=== PATIENT | female | born 1990 | race Caucasian/White ===

== ENCOUNTER 2019-09-30 03:14 | Emergency (ER) | payer SELFPAY ==
[2019-09-30] MEDS ORDERED: NORMAL SALINE 1000 ML 1,000 ML IV ONE (03:44)
--- NOTE | 2019-09-30 03:45 | ER Document Report ---
ED General - General Chief Complaint: Nausea/Vomiting Stated Complaint: NAUSEA/VOMITING Time Seen by Provider: 09/30/19 03:26 Notes: 29-year-old female brought in by EMS for nausea and vomiting this evening outside of a business. Patient is responsive. Answers yes and no questions. Responds to verbal commands. When asked if she drank tonight she nods yes. When asked if she hit her head she nods her head no. If asked if she is in any pain she nods her head no. Moves her extremities on command. - Related Data Allergies/Adverse Reactions: No Known Allergies Allergy (Unverified 09/30/19 03:36) Past Medical History - Social History Smoking Status: Unknown if Ever Smoked Frequency of alcohol use: Occasional Drug Abuse: None Family History: Reviewed & Not Pertinent Patient has homicidal ideation: No Review of Systems - Review of Systems -: Yes ROS unobtainable due to patient's medical condition Physical Exam - Vital signs Vitals: Temp 97.5 F 09/30/19 03:15 Interpretation: Normal - Notes Notes: Adult General: GENERAL: Alert, responsive to yes and no questions. no acute distress, physical exam limited due to patients intoxication. Emesis noted on patients shirt HEAD: Normocephalic, atraumatic EYES: Pupils equal, round and reactive to light. Extraocular movements intact. ENT: Oral mucosa moist, tongue midline. Oropharynx unremarkable. Airway patent. Nares patent, sinuses nontender, ear canals unremarkable, TMs intact. NECK: Full range of motion. Supple. Trachea midline. No lymphadenopathy. LUNGS: Clear to auscultation bilaterally, no wheezes, rales, or rhonchi. No respiratory distress. Nontender chest wall. HEART: Regular rate and rhythm. No murmurs, rubs or gallops. ABDOMEN: Soft, nontender. Nondistended. (-) [place] sign. Bowel sounds present in all 4 quadrants. GENITOURINARY: Deferred EXTREMITIES: Moves all 4 extremities spontaneously. No edema, normal radial and dorsal pedis pulses bilaterally. No cyanosis. BACK: non tender, no step offs or crepitus. NEUROLOGICAL: Alert. Strength 5/ 5 in all extremities. PSYCH: Normal affect, normal mood. SKIN: Warm, dry, normal turgor. No rashes or lesions noted. Course - Re-evaluation Re-evalutation: 09/30/19 04:57 Patient's labs are unremarkable at this time. Patient reports that she drank a lot last night. She also has vomit on her right side on her shirt and her pants. Suspect nausea and vomiting related to alcohol intoxication. Patient has been reevaluated. Is resting peacefully in the bed. Still responsive to questions. We will continue to monitor patient and reassess. When she is able to remain awake will recommend patient go home. Labs are unremarkable. test is negative 09/30/19 07:08 09/30/19 07:39 Patient is now alert and oriented. States she does not remember the events of last night. Does remember drinking alcohol. Does not remember how much or where she was at. Patient does report that she is nauseated at this time. Denies any pain. No signs of trauma. Denies any headache, fevers, chills shortness of breath chest pain or any additional symptoms. Discussed with patient the events of the evening and that she was found by EMS on a bench outside of a business vomiting and they brought her in. I also discussed with her that she was able to respond to yes or no questions and she was able to tell me that she had consumed alcohol head trauma and was not in pain. Repeat physical was performed. Patient is alert and oriented x3. Head is atraumatic, normocephalic pupils are equal round reactive to light and extraocular movements intact. Oropharynx is unremarkable. Patient is neurovascularly intact in upper and lower extremities. 5 out of 5 strength in all extremities. Cervical, thoracic and lumbar spine has no midline tenderness and no paraspinal tenderness. Heart regular rate and rhythm with no murmurs rubs or gallops. Lungs are clear to auscultation bilaterally. Abdomen is soft, nontender with bowel sounds in all 4 quadrants. Skin shows no lacerations or lesions. As patient is alert and oriented at this time, denies pain with no signs of trauma I am okay discharging the patient. Discussed return precautions with the patient. Patient acknowledges and verbalizes understanding of instructions. All questions answered. - Vital Signs Vital signs: Temp Pulse Resp BP Pulse Ox 97.5 F 68 16 110/64 100 09/30/19 03:16 09/30/19 06:00 09/30/19 06:00 09/30/19 06:00 09/30/19 06:00 - Laboratory Result Diagrams: 09/30/19 03:50 09/30/19 03:50 Laboratory results interpreted by me: 09/30/19 03:50 Chloride 109 H Glucose 115 H Discharge - Discharge Clinical Impression: Alcohol intoxication Qualifiers: Complication of substance-induced condition: uncomplicated Qualified Code(s): F10.920 - Alcohol use, unspecified with intoxication, uncomplicated Nausea & vomiting Qualifiers: Vomiting type: unspecified Vomiting Intractability: unspecified Qualified Code(s): R11.2 - Nausea with vomiting, unspecified Condition: Stable Disposition: HOME, SELF-CARE Instructions: Acute Alcohol Intoxication ([facility]), Antinausea Medication ([facility]), Intravenous (IV) Fluids ([facility]), Nausea or Vomiting, Nonspecific ([facility]) Additional Instructions: Please follow-up with your primary care provider. You may return to the emergency department for any worsening symptoms or development of new symptoms. Prescriptions: Ondansetron [Zofran Odt 4 mg Tablet] 4 mg PO Q4HP PRN #10 tab.rapdis PRN Reason:
[2019-09-30 04:31] LABS: ALBUMIN 4.3 g/dL (3.5-5.0); ALKALINE PHOSPHATASE 44 U/L (38-126); ANION GAP 9 (5-19); ASPARTATE AMINO TRANSFERASE 21 U/L (14-36); BILIRUBIN,TOTAL 0.2 mg/dL (0.2-1.3); BLOOD UREA NITROGEN 8 mg/dL (7-20); CALCIUM 8.5 mg/dL (8.4-10.2); CARBON DIOXIDE 24 mmol/L (22-30); CHLORIDE 109 mmol/L (98-107); GLUCOSE 115 mg/dL (75-110); TOTAL PROTEIN 7.2 g/dL (6.3-8.2)
[2019-09-30 04:50] LABS: ABSOLUTE LYMPHOCYTES (AUTO) 1.3 10^3/uL (0.5-4.7); ABSOLUTE MONOCYTES (AUTO) 0.3 10^3/uL (0.1-1.4); ABSOLUTE NEUT (AUTO) 4.1 10^3/uL (1.7-8.2); BASOPHILS % (AUTO) 0.5 % (0-2); EOSINOPHILS % (AUTO) 0.2 % (0-6); HEMATOCRIT 36.7 % (36.0-47.0); HEMOGLOBIN 12.4 g/dL (12.0-15.5); LYMPHOCYTES % (AUTO) 22.5 % (13-45); MEAN CORPUSCULAR HEMOGLOBIN 31.6 pg (27.0-33.4); MEAN CORPUSCULAR HGB CONC 33.8 g/dL (32.0-36.0); MEAN CORPUSCULAR VOLUME 94 fl (80-97); MONOCYTES % (AUTO) 4.9 % (3-13); PLATELET COUNT 231 10^3/uL (150-450); RED BLOOD COUNT 3.92 10^6/uL (3.72-5.28); RED CELL DISTRIBUTION WIDTH 12.2 % (11.5-14.0); SEGMENTED NEUTROPHILS % (AUTO) 71.9 % (42-78); TOTAL CELLS COUNTED % (AUTO) 100 %; WHITE BLOOD COUNT 5.7 10^3/uL (4.0-10.5)
[2019-09-30] MEDS ORDERED: ONDANSETRON 4 MG TAB.RAPDIS PO ONE (07:44)
[2019-09-30 08:37] VITALS: BP 111/64
== END 2019-09-30 08:37 | disposition home or self-care (01) ==
LOC: ER 03:14
DX: F10.920 Alcohol use, unspecified with intoxication, uncomplicated (principal); R11.2 Nausea with vomiting, unspecified
CPT/HCPCS: 99283; 96360; 36415; 84702; 85025; 80053; S0119; J7030